=== PATIENT | female | born 1995 | race Two or more races ===

== ENCOUNTER 2025-02-09 10:23 | Emergency (ER) | payer SELFPAY ==
[~2025-02-09] VITALS: Ht 182.9 cm; Wt 122.0 kg
[2025-02-09 10:25] VITALS: TEMP 98.2
[2025-02-09 12:12] VITALS: BP 148/78; PULSE 81; RESP 18; O2SAT 98
--- NOTE | 2025-02-09 12:34 | ED.PDOC ---
Eye-HPI HPI Comments 29-year-old female presents to the ER with prior MHx of a brain aneurysm and the chief complaint of a sore throat. Patient reports on having the sore throat two days and possible exposure at work. Patient notes on waking up last night due from sweating and a possible fever. Patient woke up this morning with sore throat. Patient states on trying to use home remedies but is not working. Denies chills, N/V/D, SOB, CP. Chief Complaint: Sore Throat Time Seen by MD: 12:30 Reviewed Notes: Nurses Notes, Medications, Allergies Allergies: Coded Allergies: Amoxicillin (Verified Allergy, Severe, 02/09/25) Penicillins (Verified Allergy, Severe, 02/09/25) Information Source: Patient Mode of Arrival: Ambulatory Timing: Days Duration: Since onset, Days Prehospital treatment: None Quality: Pain Lids: Normal Conjunctiva: Normal Cornea: Normal Pupils: Normal EOM: Normal Fundus: Normal Slit lamp exam: Normal Anterior chamber: Normal Mouth: Tender (Throat tender and sore) ENT Ear Exam: Normal, Normal, Normal Nose: Normal Sinuses: Normal Oropharynx: Normal Onset: Spontaneous Throat Exposed to: Exposed to: (Unknown) History of: None Associated signs and symptoms: Sore Throat Past Medical History Past Medical History (Other): Brain aneurysm Surgical History: Denies all surgeries INBOUND CUSTOMER SERVICE REPRESENTATIVE History: No Pertinent INBOUND CUSTOMER SERVICE REPRESENTATIVE History Family History Family History: Reviewed,noncontributory to illness, Unknown Social History Smoker: Non-Smoker Alcohol: Denies ETOH Use Drugs: Denies Drug Use Lives In: Home Constitutional: denies: chills, diaphoresis, fatigue, fever, malaise, sweats, weakness, others EENTM: reports: throat pain, throat swelling; denies: blurred vision, double vision, ear bleeding, ear discharge, ear drainage, ear pain, ear ringing, eye pain, eye redness, hearing loss, mouth pain, mouth swelling, nasal discharge, nose bleeding, nose congestion, nose pain, photophobia, tearing, voice changes, others Respiratory: denies: cough, hemoptysis, orthopnea, SOB at rest, shortness of breath, SOB with excertion, stridor, wheezing, others Cardiovascular: denies: chest pain, dizzy spells, diaphoresis, Dyspnea on exertion, edema, irregular heart beat, left arm pain, lightheadedness, palpitations, PND, syncope, others Gastrointestinal: denies: abdomen distended, abdominal pain, blood streaked bowels, constipated, diarrhea, dysphagia, difficulty swallowing, hematemesis, melena, nausea, poor appetite, poor fluid intake, rectal bleeding, rectal pain, vomiting, others Genitourinary: denies: abnormal vagina bleeding, burning, dyspareunia, dysuria, flank pain, frequency, hematuria, incontinence, pain, , vagina discharge, urgency, others Neurological: denies: dizziness, fainting, headache, left sided numbness, left sided weakness, numbness, paresthesia, pre-existing deficit, right sided numbness, right sided weakness, seizure, speech problems, tingling, tremors, weakness, others Musculoskeletal: denies: back pain, gout, joint pain, joint swelling, muscle pain, muscle stiffness, neck pain, others Integumetry: denies: bruises, change in color, change in hair/nails, dryness, laceration, lesions, lumps, rash, wounds, others Allergic/Immunocompromised: denies: Difficulty Healing, Frequent Infections, Hives, Itching, others Hematologic/Lymphatic: denies: anemia, blood clots, easy bleeding, easy bruising, swollen glands, others Endocrine: denies: excessive hunger, excessive sweating, excessive thirst, excessive urination, flushing, intolerance to cold, intolerance to heat, unexplained weight gain, unexplained weight loss, others Psychiatric: denies: anxiety, bipolar disorder, depression, hopeless, panic disorder, schizophrenia, sleepless, suicidal, others All Other Systems: Reviewed and Negative Physical Exam General Appearance: No Apparent Distress, Normal HEENT: Normal ENT Inspection, Pharynx Normal, Tonsillar Exudate Neck: Full Range of Motion, Non-Tender, Normal, Normal Inspection Respiratory: Chest Non-Tender, Lungs Clear, No Accessory Muscle Use, No Respiratory Distress, Normal Breath Sounds Cardiovascular: No Edema, No JVD, No Murmur, No Gallop, Normal Peripheral Pulses, Regular Rate/Rhythm Breast Exam: Deferred Gastrointestinal: No Organomegaly, Non Tender, No Pulsatile Mass, Normal Bowel Sounds, Soft Genitalia: Deferred Pelvic: Deferred Rectal: Deferred Extremities: No calf tenderness, Normal capillary refill, Normal inspection, Normal range of motion, Non-tender, No pedal edema Musculoskeletal : Apperance: Normal Neurologic: Alert, director financial services II-XII nml as Tested, No Motor Deficits, Normal Affect, Normal Mood, No Sensory Deficits Cerebellar Function: Normal Reflexes: Normal Skin: Dry, Normal Color, Warm Lymphatic: No Adenopathy Was a procedure done? Was a procedure done?: No EENT DIFF Eye: Other Sore Throat: Streptococcal, Viral Pharyngitis, URI X-Ray, Labs, Meds, VS Vital Signs Date Time Temp Pulse Resp B/P (MAP) Pulse Ox O2 Delivery O2 Flow Rate FiO2 02/09/25 12:12 81 18 148/78 (101) 98 02/09/25 12:12 81 18 98 Room Air 02/09/25 10:25 98.2 85 15 123/64 97 98.2 X-Ray, Labs, Meds, VS Comment 29-year-old female presents to the ER with prior MHx of a brain aneurysm and the chief complaint of a sore throat. Patient arrives alert and oriented, ABC's intact, afebrile, vital signs stable, saturating well in room air Patient presents with a chief complaint of a sore throat. After review of systems and physical examination there are no no concerns or red flags for peritonsillar abscess, abscess formation, epiglottitis, retropharyngeal abscess formation or airway obstruction. No concerns for peritonsillar abscess as patient denies severe sore throat, muffled or hot potato voice, and difficulty handling secretions. No concerns for abscess formation as the soft palate is symmetrical and there is no displacement of the uvula and the uvula is also midline. No concerns for epiglottitis as patient denies severe sore throat, dysphagia, muffled voice, patient is not drooling nor is patient in tripod position. No signs of retropharyngeal abscess formation as patient has no fevers, stiff neck, drooling no stridor No signs of airway obstruction as patient denies sensation of foreign body vital signs stable on room air. Exam/test findings consistent with strep throat infection. Encouraged fluid intake Acetaminophen to reduce pain/fever NSAIDs to reduce pain/fever Nonpharmacological recommendations given Warm salt water gargles Throat lozenges Humidified air Also advised to replace toothbrush after 3 days of antibiotic use, return to school after 24 hours of treatment (no longer contagious). Return precautions given Worsening pain Fevers past 48 hours after antibiotics Any neck pain, headache, vision issues, or other concerns Additional MDM Review of External, Non-ED records: External records reviewed. Discussion with independent historian (EMS, family) history obtained from the patient/parents (if applicable) at bedside Chronic conditions affecting care: None Social determinants of health affecting care: None Consideration of admission (observation or admission): I considered escalation of care to admission for this patient, however given the reassuring workup, the patient is safe for outpatient management. Discussion with the Radiology: No Tests considered but not performed: Prescription medication considered but not given: 12 lead EKG interpretation: Time of 1ST Reevaluation: 12:09 Reevaluation 1ST: Unchanged Time of 2ND Reevaluation: 12:45 Reevaluation 2ND: Improved Patient Education/Counseling: Diagnosis, Treatment, Prognosis Family Education/Counseling: No Family Present SEPSIS Sepsis Screen Date sepsis recognized/suspect: Feb 09, 2025 Time Sepsis recognized/suspect: 1028 Recent Procedure: No On Antibiotic Therapy: No Respiratory Rate >20: No Heart Rate >90: No Temp<36 C (96.8 F) or >38.3 C: No SBP <90 or MAP <65 mmHG: No New Acute Mental Status Change: No Is the patient on CPAP, BIPAP,: No Vital Signs Date Time Temp Pulse Resp B/P (MAP) Pulse Ox O2 Delivery O2 Flow Rate FiO2 02/09/25 12:12 81 18 148/78 (101) 98 02/09/25 12:12 81 18 98 Room Air 02/09/25 10:25 98.2 85 15 123/64 97 98.2 Departure 1 Departure Time of Disposition: 12:46 Impression: Primary Impression: Tonsillar exudate Disposition: 01 HOME / SELF CARE / HOMELESS Condition: Stable e-Prescriptions Azithromycin (Azithromycin) 250 Mg Tab 250 MG PO DAILY MDD 500 for 5 Days, #6 TAB 0 Refills 2 TABLETS ORALLY ON DAY ONE, THEN 1 TABLET ORALLY DAILY FOR 4 DAYS Prov: FUENTES ALEXANDRA NP 02/09/25 Methylprednisolone (Medrol Dosepak) 4 Mg Isaias 4 MG PO UD, #21 TAB 0 Refills UAD Prov: FUENTES ALEXANDRA NP 02/09/25 Discharged With: Self Critical Care Note Critical Care Time?: No Stability Stability form required: No Heart Score Heart Score: Heart Score Response (Comments) Value History N/A 0 EKG N/A 0 Age N/A 0 Risk Factors N/A 0 Troponin N/A 0 Total 0 I personally scribed for FUENTES ALEXANDRA NP ([email or web address]) on 02/09/25 at 12:34. Electronically submitted by Jhonny Radford ([email or web address]). FUENTES ALEXANDRA NP Feb 09, 2025 12:34
[2025-02-09] MEDS ORDERED: AZIT-43 PO (12:47)
[2025-02-09] MEDS ORDERED: METH4PAK PO (12:47)
== END 2025-02-09 12:55 | disposition home or self-care (01) ==
LOC: ER 10:23
DX: J35.8 Other chronic diseases of tonsils and adenoids (principal); Z88.0 Allergy status to penicillin
CPT/HCPCS: 96372; 99283; J1100